=== PATIENT | male | born 1995 | race Caucasian/White ===

== ENCOUNTER 2016-08-26 23:41 | Emergency (ER) | payer OTHER ==
[~2016-08-26] VITALS: Ht 167.6 cm; Wt 75.4 kg
[2016-08-26 23:42] VITALS: BP 156/81
[2016-08-27] MEDS ORDERED: KEFL500C17 PO (14:45)
[2016-08-27] MEDS ORDERED: ZOFR4TAB3 PO (15:15)
[2016-08-27] MEDS ORDERED: ZANA4TAB PO (15:15)
[2016-08-27] MEDS ORDERED: IBUP80TA PO (15:15)
== END 2016-08-27 04:14 | disposition left against medical advice (07) ==
LOC: M ED 23:41
DX: S09.93XA Unspecified injury of face, initial encounter (principal); X58.XXXA Exposure to other specified factors, initial encounter; Y92.838 Other recreation area as the place of occurrence of the external cause; Y93.89 Activity, other specified; Y99.8 Other external cause status

== ENCOUNTER 2016-08-27 13:40 | Emergency (ER) | payer OTHER ==
[~2016-08-27] VITALS: Ht 170.2 cm; Wt 74.1 kg
[2016-08-27] MEDS ORDERED: CEPHALEXIN 500 MG CAP PO ONE (14:45)
[2016-08-27] MEDS ORDERED: KEFL500C17 PO (14:45)
[2016-08-27] MEDS ORDERED: NORCO, ANEXSIA 5/325MG TABLET (HYDROcodone/ACETAMINOPHEN) PO ONE (14:45)
[2016-08-27] MEDS ORDERED: METOCLOPRAMIDE 10 MG TAB PO ONE (14:45)
--- NOTE | 2016-08-27 15:09 | REP ---
HISTORY: Trauma. COMPARISON: None. TECHNIQUE: 4.5 mm contiguous transaxial sections were obtained from the skull base to the cerebral convexities with thin cuts through the posterior fossa with and without the administration of intravenous contrast. FINDINGS: The ventricles and sulci are consistent with the patient's age. There are no extra-axial fluid collections. There is no mass effect on the non-contrast scan and there are no enhancing mass lesions on the post contrast scan. The deep cerebral white matter is consistent with the patient's age. The orbital and petrous structures, cerebellopontine angles and posterior fossa are unremarkable. The sella turcica, cavernous and paracavernous structures are essentially unremarkable. The visualized portions of the paranasal sinuses and mastoid air cells are clear. IMPRESSION: Essentially unremarkable CT examination of the brain. Signed by Jose Alejandro Villafuerte DO 08/27/2016 03:39 P
--- NOTE | 2016-08-27 15:11 | REP ---
REASON: Trauma. PRIORS: None. Vertebral body height and alignment is normal. The disc spaces are symmetric and well maintained, the facet joints are well aligned bilaterally. There is no evidence of a cervical spine fracture. There is no abnormal paraspinal soft tissue swelling. IMPRESSION: CT findings are within normal limits. Signed by Jose Alejandro Villafuerte DO 08/27/2016 03:39 P
--- NOTE | 2016-08-27 15:13 | REP ---
REASON: Trauma. PRIORS: None. There is no maxillofacial fracture. There is a mucous retention cyst in the right maxillary sinus. There is mucosal thickening seen involving the ethmoid bulla on the left. 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 IMPRESSION: No fracture. Findings as described above. Signed by Jose Alejandro Villafuerte DO 08/27/2016 03:39 P
[2016-08-27] MEDS ORDERED: ZANA4TAB PO (15:15)
[2016-08-27] MEDS ORDERED: IBUP80TA PO (15:15)
[2016-08-27] MEDS ORDERED: ZOFR4TAB3 PO (15:15)
[2016-08-27 15:39] VITALS: BP 132/73
== END 2016-08-27 15:40 | disposition home or self-care (01) ==
LOC: M ED 15:19
DX: G89.11 Acute pain due to trauma (principal); M54.2 Cervicalgia; S01.112A Laceration without foreign body of left eyelid and periocular area, initial encounter; S09.90XA Unspecified injury of head, initial encounter; Y04.8XXA Assault by other bodily force, initial encounter; Y92.511 Restaurant or cafe as the place of occurrence of the external cause; Y93.9 Activity, unspecified; Y99.8 Other external cause status; J34.1 Cyst and mucocele of nose and nasal sinus